=== PATIENT | female | born 1985 | race Caucasian/White ===

== ENCOUNTER 2018-05-28 18:48 | Emergency (ER) | payer BC ==
[~2018-05-28] VITALS: Ht 154.9 cm; Wt 45.5 kg
[2018-05-28 19:04] VITALS: Ht 154.9 cm; Wt 45.5 kg
[2018-05-28] MEDS ORDERED: TORADOL10 MG PO (19:05)
[2018-05-28] MEDS ORDERED: FLOMAX0.4 MG PO (19:06)
[2018-05-28 19:35] LABS: APPEARANCE HAZY (CLEAR); BILIRUBIN NEGATIVE (NEGATIVE); COLOR YELLOW (YELLOW); GLUCOSE NEGATIVE (NEGATIVE); KETONE NEGATIVE (NEGATIVE); NITRITE NEGATIVE (NEGATIVE); PROTEIN 1+ mg/dL (NEGATIVE); UROBILINOGEN NORMAL (NORMAL); WHITE CELLS - URINE 0-5 /hpf (0-5)
[2018-05-28 19:36] LABS: EPITHELIAL CELLS OCC /hpf (0-5); HCG URINE NEGATIVE (NEGATIVE); RED CELLS - URINE >50 /hpf (0-5)
[2018-05-28 19:42] LABS: BASOPHILS 0.1 % (0-2); EOSINOPHILS 4.8 % (0-7); HEMATOCRIT 36.4 % (36.0-48.0); HEMOGLOBIN 12.4 g/dL (12-16); IMMATURE GRANULOCYTES 0.1 % (0-5); LYMPHOCYTES 36.6 % (15-50); MCH 30.1 pg (26.0-34.0); MCHC 34.1 g/dL (31.0-37.0); MCV 88.3 fL (80.0-100.0); MEAN PLATELET VOLUME 9.5 fL (7.4-10.4); MONOCYTES 9.1 % (2-11); NEUTROPHILS 49.3 % (40-80); PLATELET COUNT 267 10x3/uL (130-400); RBC 4.12 10x6/uL (4.00-5.40); RDW 12.8 % (11.5-14.5); WBC 8.1 10x3/uL (4.8-10.8)
[2018-05-28 19:49] LABS: CALC OSMOLALITY 278 mosm/kg (275-300); CALCIUM 8.8 mg/dL (8.5-10.1); CARBON DIOXIDE 24.8 mmol/L (21.0-32.0); CHLORIDE - SERUM 105 mmol/L (98-107); CREATININE - SERUM 0.6 mg/dL (0.6-1.3); GLUCOSE 91 mg/dL (74-106); POTASSIUM - SERUM 4.1 mmol/L (3.5-5.1); SODIUM 140 mmol/L (136-145); UREA NITROGEN 12 mg/dL (7-18); eGFR NON AFRICAN AMERICAN > 90 mL/min (90-120)
[2018-05-28] MEDS ORDERED: NORCO 5/325 TAB1 TAB PO (20:21)
[2018-05-28 20:52] VITALS: BP 112/6
== END 2018-05-28 20:53 | disposition home or self-care (01) ==
LOC: D.ER 18:48
PROVIDERS: Emergency Medicine
DX: N20.1 Calculus of ureter (principal); R11.2 Nausea with vomiting, unspecified; F17.200 Nicotine dependence, unspecified, uncomplicated

== ENCOUNTER 2018-08-15 14:26 | Emergency (ER) | payer BC ==
[~2018-08-15] VITALS: Ht 154.9 cm; Wt 50.0 kg
[~2018-08-15 14:26] MED LIST: FLOMAX0.4 MG PO; NORCO 5/325 TAB1 TAB PO; TORADOL10 MG PO
[2018-08-15 14:36] VITALS: Ht 154.9 cm; Wt 50.0 kg
[2018-08-15 15:44] LABS: BASOPHILS 0.3 % (0-2); EOSINOPHILS 6.4 % (0-7); HEMATOCRIT 38.3 % (36.0-48.0); HEMOGLOBIN 12.9 g/dL (12-16); IMMATURE GRANULOCYTES 0.2 % (0-5); LYMPHOCYTES 40.5 % (15-50); MCH 29.9 pg (26.0-34.0); MCHC 33.7 g/dL (31.0-37.0); MCV 88.9 fL (80.0-100.0); MEAN PLATELET VOLUME 9.1 fL (7.4-10.4); MONOCYTES 7.9 % (2-11); NEUTROPHILS 44.7 % (40-80); PLATELET COUNT 303 10x3/uL (130-400); RBC 4.31 10x6/uL (4.00-5.40); RDW 13.1 % (11.5-14.5); WBC 6.6 10x3/uL (4.8-10.8)
[2018-08-15 15:46] LABS: APPEARANCE CLEAR (CLEAR); BILIRUBIN NEGATIVE (NEGATIVE); COLOR YELLOW (YELLOW); GLUCOSE NEGATIVE (NEGATIVE); KETONE NEGATIVE (NEGATIVE); NITRITE NEGATIVE (NEGATIVE); PROTEIN NEGATIVE (NEGATIVE); UROBILINOGEN NORMAL (NORMAL)
[2018-08-15 15:47] LABS: BACTERIA FEW /hpf (NONE SEEN); EPITHELIAL CELLS 0-5 /hpf (0-5); RED CELLS - URINE 0-5 /hpf (0-5); WHITE CELLS - URINE 0-5 /hpf (0-5)
[2018-08-15 16:01] LABS: ALBUMIN 3.5 g/dL (3.4-5.0); ALKALINE PHOSPHATASE 121 U/L (46-116); ALT (SGPT) 146 U/L (10-68); BILIRUBIN - TOTAL 0.24 mg/dL (0.2-1.3); CALC OSMOLALITY 284 mosm/kg (275-300); CALCIUM 8.7 mg/dL (8.5-10.1); CARBON DIOXIDE 27.6 mmol/L (21.0-32.0); CHLORIDE - SERUM 107 mmol/L (98-107); CREATININE - SERUM 0.6 mg/dL (0.6-1.3); GLUCOSE 79 mg/dL (74-106); POTASSIUM - SERUM 3.3 mmol/L (3.5-5.1); PROTEIN - SERUM 7.5 g/dL (6.4-8.2); SODIUM 144 mmol/L (136-145); UREA NITROGEN 9 mg/dL (7-18); eGFR NON AFRICAN AMERICAN > 90 mL/min (90-120)
[2018-08-15 16:36] LABS: HCG URINE NEGATIVE (NEGATIVE)
[2018-08-15] MEDS ORDERED: HYDROCODON-ACE1 EAC7 PO (19:45)
[2018-08-15] MEDS ORDERED: ZOFRAN4 MG PO (19:45)
[2018-08-15 20:26] VITALS: BP 128/75
== END 2018-08-15 20:28 | disposition home or self-care (01) ==
LOC: D.ER 14:26
PROVIDERS: Family Medicine
DX: N20.0 Calculus of kidney (principal); R11.2 Nausea with vomiting, unspecified

== ENCOUNTER 2018-08-23 13:44 | Emergency (ER) | payer BC ==
[~2018-08-23] VITALS: Ht 154.9 cm; Wt 50.0 kg
[~2018-08-23 13:44] MED LIST changes: +HYDROCODON-ACE1 EAC7 PO; +ZOFRAN4 MG PO
[2018-08-23 14:09] VITALS: BP 142/104; Ht 154.9 cm; Wt 50.0 kg
[2018-08-23 15:06] LABS: APPEARANCE CLEAR (CLEAR); BILIRUBIN NEGATIVE (NEGATIVE); COLOR YELLOW (YELLOW); EPITHELIAL CELLS 0-5 /hpf (0-5); GLUCOSE NEGATIVE (NEGATIVE); KETONE NEGATIVE (NEGATIVE); NITRITE NEGATIVE (NEGATIVE); PROTEIN NEGATIVE (NEGATIVE); RED CELLS - URINE 0-5 /hpf (0-5); SPECIFIC GRAVITY 1.015 (1.005-1.020); UROBILINOGEN NORMAL (NORMAL); WHITE CELLS - URINE 0-5 /hpf (0-5)
[2018-08-23 15:10] LABS: HEMATOCRIT 40.5 % (36.0-48.0); HEMOGLOBIN 13.8 g/dL (12-16); LYMPHOCYTES 28.6 % (15-50); MCH 30.4 pg (26.0-34.0); MCHC 34.1 g/dL (31.0-37.0); MCV 89.2 fL (80.0-100.0); MEAN PLATELET VOLUME 9.1 fL (7.4-10.4); NEUTROPHILS 66.4 % (40-80); RBC 4.54 10x6/uL (4.00-5.40); RDW 13.1 % (11.5-14.5); WBC 7.7 10x3/uL (4.8-10.8)
[2018-08-23 15:12] LABS: PLATELET COUNT 380 10x3/uL (130-400)
[2018-08-23 15:29] LABS: ALBUMIN 3.6 g/dL (3.4-5.0); ALKALINE PHOSPHATASE 103 U/L (46-116); ALT (SGPT) 38 U/L (10-68); BILIRUBIN - TOTAL 0.21 mg/dL (0.2-1.3); CALC OSMOLALITY 281 mosm/kg (275-300); CALCIUM 9.1 mg/dL (8.5-10.1); CHLORIDE - SERUM 108 mmol/L (98-107); CREATININE - SERUM 0.5 mg/dL (0.6-1.3); GLUCOSE 79 mg/dL (74-106); PROTEIN - SERUM 7.8 g/dL (6.4-8.2); SODIUM 143 mmol/L (136-145); UREA NITROGEN 8 mg/dL (7-18); eGFR NON AFRICAN AMERICAN > 90 mL/min (90-120)
[2018-08-23] MEDS ORDERED: ZOFRAN4 MG PO (17:08)
[2018-08-23] MEDS ORDERED: HYDROCODON-ACE1 EAC7 PO (17:08)
== END 2018-08-23 18:42 | disposition home or self-care (01) ==
LOC: D.ER 13:44
PROVIDERS: Family Medicine
DX: N23 Unspecified renal colic (principal); R11.0 Nausea; F17.200 Nicotine dependence, unspecified, uncomplicated

== ENCOUNTER 2018-09-25 18:33 | Emergency (ER) | payer BC ==
[~2018-09-25] VITALS: Ht 154.9 cm; Wt 50.9 kg
[2018-09-25 19:09] VITALS: Ht 154.9 cm; Wt 50.9 kg
[2018-09-25 20:30] LABS: APPEARANCE HAZY (CLEAR); COLOR YELLOW (YELLOW)
[2018-09-25 20:31] LABS: BILIRUBIN NEGATIVE (NEGATIVE); EPITHELIAL CELLS 0-5 /hpf (0-5); GLUCOSE NEGATIVE (NEGATIVE); KETONE NEGATIVE (NEGATIVE); NITRITE NEGATIVE (NEGATIVE); PROTEIN NEGATIVE (NEGATIVE); RED CELLS - URINE 25-50 /hpf (0-5); UROBILINOGEN NORMAL (NORMAL)
[2018-09-25 20:32] LABS: BACTERIA FEW /hpf (NONE SEEN)
[2018-09-25] MEDS ORDERED: HYDROCODON-ACE1 EAC2 PO (22:03)
[2018-09-25 22:17] VITALS: BP 132/84
== END 2018-09-25 22:17 | disposition home or self-care (01) ==
LOC: D.ER 18:33
PROVIDERS: Family Medicine
DX: N23 Unspecified renal colic (principal)

== ENCOUNTER 2018-11-04 19:45 | Emergency (ER) | payer BC ==
[~2018-11-04] VITALS: Ht 154.9 cm; Wt 54.4 kg
[~2018-11-04 19:45] MED LIST changes: +HYDROCODON-ACE1 EAC2 PO
[2018-11-04 19:48] VITALS: Ht 154.9 cm; Wt 54.4 kg
[2018-11-04 21:31] LABS: APPEARANCE HAZY (CLEAR); BACTERIA NONE SEEN /hpf (NONE SEEN); BILIRUBIN NEGATIVE (NEGATIVE); COLOR YELLOW (YELLOW); EPITHELIAL CELLS 0-5 /hpf (0-5); GLUCOSE NEGATIVE (NEGATIVE); KETONE NEGATIVE (NEGATIVE); NITRITE NEGATIVE (NEGATIVE); PROTEIN NEGATIVE (NEGATIVE); UROBILINOGEN NORMAL (NORMAL); WHITE CELLS - URINE RARE /hpf (0-5)
[2018-11-04 23:05] VITALS: BP 149/73
== END 2018-11-04 23:05 | disposition home or self-care (01) ==
LOC: D.ER 19:45
PROVIDERS: Emergency Medicine
DX: N23 Unspecified renal colic (principal)

== ENCOUNTER 2019-01-16 08:01 | Emergency (ER) | payer SELFPAY ==
[~2019-01-16] VITALS: Ht 154.9 cm; Wt 56.8 kg
[2019-01-16 08:04] VITALS: Ht 154.9 cm; Wt 56.8 kg
[2019-01-16 08:36] LABS: BASOPHILS 0.1 % (0-2); EOSINOPHILS 2.8 % (0-7); HEMATOCRIT 35.3 % (36.0-48.0); HEMOGLOBIN 11.9 g/dL (12-16); IMMATURE GRANULOCYTES 0.1 % (0-5); LYMPHOCYTES 24.6 % (15-50); MCH 29.8 pg (26.0-34.0); MCHC 33.7 g/dL (31.0-37.0); MCV 88.3 fL (80.0-100.0); MEAN PLATELET VOLUME 9.2 fL (7.4-10.4); MONOCYTES 8.2 % (2-11); NEUTROPHILS 64.2 % (40-80); PLATELET COUNT 323 10x3/uL (130-400); RDW 13.8 % (11.5-14.5); WBC 7.8 10x3/uL (4.8-10.8)
[2019-01-16 08:50] LABS: ALBUMIN 3.4 g/dL (3.4-5.0); ALKALINE PHOSPHATASE 92 U/L (46-116); ALT (SGPT) 20 U/L (10-68); BILIRUBIN - TOTAL 0.19 mg/dL (0.2-1.3); CALC OSMOLALITY 277 mosm/kg (275-300); CALCIUM 8.6 mg/dL (8.5-10.1); CARBON DIOXIDE 24.9 mmol/L (21.0-32.0); CHLORIDE - SERUM 108 mmol/L (98-107); CREATININE - SERUM 0.6 mg/dL (0.6-1.3); GLUCOSE 86 mg/dL (74-106); POTASSIUM - SERUM 3.9 mmol/L (3.5-5.1); PROTEIN - SERUM 6.8 g/dL (6.4-8.2); SODIUM 140 mmol/L (136-145); UREA NITROGEN 12 mg/dL (7-18); eGFR NON AFRICAN AMERICAN > 90 mL/min (90-120)
[2019-01-16 08:59] LABS: APPEARANCE CLEAR (CLEAR); BILIRUBIN NEGATIVE (NEGATIVE); COLOR YELLOW (YELLOW); GLUCOSE NEGATIVE (NEGATIVE); KETONE NEGATIVE (NEGATIVE); NITRITE NEGATIVE (NEGATIVE); PROTEIN NEGATIVE (NEGATIVE); SPECIFIC GRAVITY 1.025 (1.005-1.020); UROBILINOGEN NORMAL (NORMAL); WHITE CELLS - URINE OCC /hpf (0-5)
[2019-01-16 09:00] LABS: BACTERIA FEW /hpf (NONE SEEN); EPITHELIAL CELLS 0-5 /hpf (0-5); MUCUS >1+ /lpf (NONE SEEN); RED CELLS - URINE 0-5 /hpf (0-5)
[2019-01-16] MEDS ORDERED: HYDROCODON-ACE1 EA10 PO (10:21)
[2019-01-16] MEDS ORDERED: FLOMAX0.4 MG PO (10:21)
[2019-01-16 11:18] VITALS: BP 136/82
== END 2019-01-16 11:18 | disposition home or self-care (01) ==
LOC: D.ER 08:01
PROVIDERS: Emergency Medicine
DX: N20.1 Calculus of ureter (principal); N20.0 Calculus of kidney

== ENCOUNTER 2019-03-11 10:12 | Emergency (ER) | payer BC ==
[~2019-03-11] VITALS: Ht 154.9 cm; Wt 55.9 kg
[~2019-03-11 10:12] MED LIST changes: +HYDROCODON-ACE1 EA10 PO
[2019-03-11 10:24] VITALS: BP 130/100; Ht 154.9 cm; Wt 55.9 kg
[2019-03-11] MEDS ORDERED: TORADOL10 MG PO (10:27)
[2019-03-11 11:12] LABS: HCG URINE NEGATIVE (NEGATIVE)
[2019-03-11 11:29] LABS: BASOPHILS 0.1 % (0-2); EOSINOPHILS 1.3 % (0-7); HEMOGLOBIN 12.9 g/dL (12-16); IMMATURE GRANULOCYTES 0.1 % (0-5); LYMPHOCYTES 28.2 % (15-50); MCH 30.6 pg (26.0-34.0); MCHC 34.9 g/dL (31.0-37.0); MCV 87.7 fL (80.0-100.0); MEAN PLATELET VOLUME 9.3 fL (7.4-10.4); MONOCYTES 7.8 % (2-11); NEUTROPHILS 62.5 % (40-80); PLATELET COUNT 290 10x3/uL (130-400); RBC 4.22 10x6/uL (4.00-5.40); RDW 13.1 % (11.5-14.5)
[2019-03-11 11:36] LABS: ALKALINE PHOSPHATASE 83 U/L (46-116); ALT (SGPT) 18 U/L (10-68); BILIRUBIN - TOTAL 0.31 mg/dL (0.2-1.3); CALC OSMOLALITY 277 mosm/kg (275-300); CALCIUM 8.6 mg/dL (8.5-10.1); CARBON DIOXIDE 23.8 mmol/L (21.0-32.0); CHLORIDE - SERUM 106 mmol/L (98-107); CREATININE - SERUM 0.6 mg/dL (0.6-1.3); GLUCOSE 91 mg/dL (74-106); POTASSIUM - SERUM 3.9 mmol/L (3.5-5.1); PROTEIN - SERUM 7.5 g/dL (6.4-8.2); SODIUM 139 mmol/L (136-145); UREA NITROGEN 13 mg/dL (7-18); eGFR NON AFRICAN AMERICAN > 90 mL/min (90-120)
[2019-03-11 12:39] LABS: APPEARANCE HAZY (CLEAR); BACTERIA MODERATE /hpf (NONE SEEN); BILIRUBIN NEGATIVE (NEGATIVE); COLOR YELLOW (YELLOW); EPITHELIAL CELLS 0-5 /hpf (0-5); GLUCOSE NEGATIVE (NEGATIVE); KETONE NEGATIVE (NEGATIVE); MUCUS <1+ /lpf (NONE SEEN); NITRITE NEGATIVE (NEGATIVE); PROTEIN NEGATIVE (NEGATIVE); SPECIFIC GRAVITY 1.025 (1.005-1.020); UROBILINOGEN NORMAL (NORMAL); WHITE CELLS - URINE OCC /hpf (0-5)
== END 2019-03-11 12:25 | disposition left against medical advice (07) ==
LOC: D.ER 10:12
PROVIDERS: Emergency Medicine
DX: R10.9 Unspecified abdominal pain (principal); R31.9 Hematuria, unspecified; Z87.442 Personal history of urinary calculi; N23 Unspecified renal colic

== ENCOUNTER 2019-04-17 12:05 | Emergency (ER) | payer BC ==
[~2019-04-17] VITALS: Ht 154.9 cm; Wt 54.5 kg
[2019-04-17 13:07] VITALS: Ht 154.9 cm; Wt 54.5 kg
[2019-04-17 13:45] LABS: ALKALINE PHOSPHATASE 83 U/L (46-116); ALT (SGPT) 29 U/L (10-68); BILIRUBIN - TOTAL 0.27 mg/dL (0.2-1.3); CALC OSMOLALITY 284 mosm/kg (275-300); CARBON DIOXIDE 26.5 mmol/L (21.0-32.0); CHLORIDE - SERUM 109 mmol/L (98-107); CREATININE - SERUM 0.9 mg/dL (0.6-1.3); GLUCOSE 89 mg/dL (74-106); POTASSIUM - SERUM 3.9 mmol/L (3.5-5.1); PROTEIN - SERUM 7.7 g/dL (6.4-8.2); SODIUM 144 mmol/L (136-145); UREA NITROGEN 11 mg/dL (7-18); eGFR NON AFRICAN AMERICAN 75 mL/min (90-120)
[2019-04-17 14:00] LABS: APPEARANCE HAZY (CLEAR); BACTERIA FEW /hpf (NONE SEEN); BILIRUBIN NEGATIVE (NEGATIVE); COLOR YELLOW (YELLOW); EPITHELIAL CELLS OCC /hpf (0-5); GLUCOSE NEGATIVE (NEGATIVE); KETONE NEGATIVE (NEGATIVE); MUCUS <1+ /lpf (NONE SEEN); NITRITE NEGATIVE (NEGATIVE); PROTEIN NEGATIVE (NEGATIVE); SPECIFIC GRAVITY 1.005 (1.005-1.020); UROBILINOGEN NORMAL (NORMAL); WHITE CELLS - URINE OCC /hpf (0-5)
[2019-04-17 14:06] LABS: BASOPHILS 0.1 % (0-2); EOSINOPHILS 0.9 % (0-7); HEMATOCRIT 40.7 % (36.0-48.0); HEMOGLOBIN 13.7 g/dL (12-16); IMMATURE GRANULOCYTES 0.3 % (0-5); LYMPHOCYTES 25.4 % (15-50); MCH 30.9 pg (26.0-34.0); MCHC 33.7 g/dL (31.0-37.0); MCV 91.9 fL (80.0-100.0); MEAN PLATELET VOLUME 9.4 fL (7.4-10.4); MONOCYTES 6.6 % (2-11); NEUTROPHILS 66.7 % (40-80); PLATELET COUNT 335 10x3/uL (130-400); RBC 4.43 10x6/uL (4.00-5.40); RDW 12.5 % (11.5-14.5); WBC 7.4 10x3/uL (4.8-10.8)
[2019-04-17 14:23] LABS: RED CELLS - URINE NONE SEEN /hpf (0-5)
[2019-04-17 14:52] LABS: HCG URINE NEGATIVE (NEGATIVE)
[2019-04-17 15:56] VITALS: BP 113/61
[2019-04-17] MEDS ORDERED: ULTRAM50 MG PO (16:40)
== END 2019-04-17 16:50 | disposition home or self-care (01) ==
LOC: D.ER 12:05
PROVIDERS: Family Medicine
DX: R10.31 Right lower quadrant pain (principal); N20.0 Calculus of kidney

== ENCOUNTER 2019-05-19 13:36 | Emergency (ER) | payer BC ==
[~2019-05-19] VITALS: Ht 154.9 cm; Wt 54.5 kg
[~2019-05-19 13:36] MED LIST changes: +ULTRAM50 MG PO
[2019-05-19 13:51] VITALS: Ht 154.9 cm; Wt 54.5 kg
[2019-05-19 14:22] LABS: APPEARANCE CLEAR (CLEAR); BILIRUBIN NEGATIVE (NEGATIVE); COLOR STRAW (YELLOW); GLUCOSE NEGATIVE (NEGATIVE); KETONE NEGATIVE (NEGATIVE); NITRITE NEGATIVE (NEGATIVE); PROTEIN NEGATIVE (NEGATIVE); SPECIFIC GRAVITY 1.005 (1.005-1.020); UROBILINOGEN NORMAL (NORMAL)
[2019-05-19 14:23] LABS: BACTERIA MODERATE /hpf (NEGATIVE); CALCIUM OXALATE CRYSTALS 0-5 /hpf (NONE SEEN); EPITHELIAL CELLS 0-5 /hpf (0-5); RED CELLS - URINE 0-5 /hpf (0-5); WHITE CELLS - URINE 0-5 /hpf (NEGATIVE)
[2019-05-19 14:25] LABS: BASOPHILS 0.2 % (0-2); EOSINOPHILS 13.1 % (0-7); HEMATOCRIT 41.8 % (36.0-48.0); HEMOGLOBIN 13.9 g/dL (12-16); IMMATURE GRANULOCYTES 0.2 % (0-5); LYMPHOCYTES 25.5 % (15-50); MCH 30.8 pg (26.0-34.0); MCHC 33.3 g/dL (31.0-37.0); MCV 92.5 fL (80.0-100.0); MEAN PLATELET VOLUME 9.1 fL (7.4-10.4); MONOCYTES 6.3 % (2-11); NEUTROPHILS 54.7 % (40-80); PLATELET COUNT 370 10x3/uL (130-400); RBC 4.52 10x6/uL (4.00-5.40); RDW 12.5 % (11.5-14.5); WBC 9.6 10x3/uL (4.8-10.8)
[2019-05-19 14:27] LABS: HCG URINE NEGATIVE (NEGATIVE)
[2019-05-19 14:44] LABS: ALKALINE PHOSPHATASE 94 U/L (46-116); ALT (SGPT) 21 U/L (10-68); BILIRUBIN - TOTAL 0.31 mg/dL (0.2-1.3); CALC OSMOLALITY 282 mosm/kg (275-300); CALCIUM 8.9 mg/dL (8.5-10.1); CARBON DIOXIDE 27.2 mmol/L (21.0-32.0); CHLORIDE - SERUM 107 mmol/L (98-107); CREATININE - SERUM 0.7 mg/dL (0.6-1.3); GLUCOSE 83 mg/dL (74-106); POTASSIUM - SERUM 3.5 mmol/L (3.5-5.1); PROTEIN - SERUM 8.1 g/dL (6.4-8.2); SODIUM 143 mmol/L (136-145); UREA NITROGEN 9 mg/dL (7-18); eGFR NON AFRICAN AMERICAN > 90 mL/min (90-120)
[2019-05-19] MEDS ORDERED: HYDROCODON-ACE1 EAC7 PO (15:57)
[2019-05-19] MEDS ORDERED: CIPRO500 MG PO (15:57)
[2019-05-19 16:27] VITALS: BP 142/90
== END 2019-05-19 16:28 | disposition home or self-care (01) ==
LOC: D.ER 13:36
PROVIDERS: Emergency Medicine
DX: N23 Unspecified renal colic (principal); Q61.3 Polycystic kidney, unspecified; F17.210 Nicotine dependence, cigarettes, uncomplicated

== ENCOUNTER 2019-06-06 09:53 | Emergency (ER) | payer BC ==
[~2019-06-06] VITALS: Ht 154.9 cm; Wt 54.5 kg
[~2019-06-06 09:53] MED LIST changes: +CIPRO500 MG PO
[2019-06-06 10:04] VITALS: Ht 154.9 cm; Wt 54.5 kg
[2019-06-06 11:39] LABS: BASOPHILS 0.1 % (0-2); EOSINOPHILS 9.7 % (0-7); HEMATOCRIT 39.3 % (36.0-48.0); HEMOGLOBIN 13.1 g/dL (12-16); IMMATURE GRANULOCYTES 0.1 % (0-5); LYMPHOCYTES 33.9 % (15-50); MCH 30.5 pg (26.0-34.0); MCHC 33.3 g/dL (31.0-37.0); MCV 91.6 fL (80.0-100.0); MEAN PLATELET VOLUME 9.3 fL (7.4-10.4); MONOCYTES 5.6 % (2-11); NEUTROPHILS 50.6 % (40-80); PLATELET COUNT 330 10x3/uL (130-400); RBC 4.29 10x6/uL (4.00-5.40); RDW 12.8 % (11.5-14.5); WBC 7.2 10x3/uL (4.8-10.8)
[2019-06-06 11:40] LABS: HCG URINE NEGATIVE (NEGATIVE)
[2019-06-06 11:42] LABS: APPEARANCE CLEAR (CLEAR); BILIRUBIN NEGATIVE (NEGATIVE); COLOR STRAW (YELLOW); GLUCOSE NEGATIVE (NEGATIVE); KETONE NEGATIVE (NEGATIVE); NITRITE NEGATIVE (NEGATIVE); PROTEIN NEGATIVE (NEGATIVE); UROBILINOGEN NORMAL (NORMAL)
[2019-06-06 11:54] LABS: CALC OSMOLALITY 275 mosm/kg (275-300); CALCIUM 8.7 mg/dL (8.5-10.1); CARBON DIOXIDE 26.1 mmol/L (21.0-32.0); CHLORIDE - SERUM 107 mmol/L (98-107); CREATININE - SERUM 0.5 mg/dL (0.6-1.3); GLUCOSE 87 mg/dL (74-106); POTASSIUM - SERUM 4.2 mmol/L (3.5-5.1); SODIUM 140 mmol/L (136-145); UREA NITROGEN 8 mg/dL (7-18); eGFR NON AFRICAN AMERICAN > 90 mL/min (90-120)
[2019-06-06 12:00] LABS: ALBUMIN 3.7 g/dL (3.4-5.0); ALKALINE PHOSPHATASE 100 U/L (46-116); ALT (SGPT) 54 U/L (10-68); BILIRUBIN - TOTAL 0.28 mg/dL (0.2-1.3); PROTEIN - SERUM 7.5 g/dL (6.4-8.2)
[2019-06-06 14:43] VITALS: BP 123/78
== END 2019-06-06 14:44 | disposition home or self-care (01) ==
LOC: D.ER 09:53
PROVIDERS: Family Medicine
DX: R10.9 Unspecified abdominal pain (principal)

== ENCOUNTER 2019-06-12 11:22 | Emergency (ER) | payer BC ==
[~2019-06-12] VITALS: Ht 154.9 cm; Wt 54.5 kg
[2019-06-12 11:29] VITALS: Ht 154.9 cm; Wt 54.5 kg
[2019-06-12 11:55] LABS: BASOPHILS 0.2 % (0-2); EOSINOPHILS 8.3 % (0-7); HEMATOCRIT 38.3 % (36.0-48.0); HEMOGLOBIN 12.5 g/dL (12-16); IMMATURE GRANULOCYTES 0.2 % (0-5); LYMPHOCYTES 30.8 % (15-50); MCH 30.6 pg (26.0-34.0); MCHC 32.6 g/dL (31.0-37.0); MCV 93.9 fL (80.0-100.0); MEAN PLATELET VOLUME 8.9 fL (7.4-10.4); MONOCYTES 6.6 % (2-11); NEUTROPHILS 53.9 % (40-80); PLATELET COUNT 355 10x3/uL (130-400); RBC 4.08 10x6/uL (4.00-5.40); RDW 12.8 % (11.5-14.5); WBC 5.8 10x3/uL (4.8-10.8)
[2019-06-12 12:07] LABS: CALC OSMOLALITY 284 mosm/kg (275-300); CARBON DIOXIDE 27.3 mmol/L (21.0-32.0); CHLORIDE - SERUM 107 mmol/L (98-107); CREATININE - SERUM 0.6 mg/dL (0.6-1.3); GLUCOSE 85 mg/dL (74-106); POTASSIUM - SERUM 3.6 mmol/L (3.5-5.1); SODIUM 144 mmol/L (136-145); UREA NITROGEN 9 mg/dL (7-18); eGFR NON AFRICAN AMERICAN > 90 mL/min (90-120)
[2019-06-12 12:13] LABS: ALBUMIN 3.9 g/dL (3.4-5.0); ALKALINE PHOSPHATASE 100 U/L (46-116); ALT (SGPT) 39 U/L (10-68); BILIRUBIN - TOTAL 0.21 mg/dL (0.2-1.3); PROTEIN - SERUM 7.3 g/dL (6.4-8.2)
[2019-06-12 12:20] LABS: APPEARANCE CLEAR (CLEAR); BACTERIA FEW /hpf (NEGATIVE); BILIRUBIN NEGATIVE (NEGATIVE); COLOR YELLOW (YELLOW); EPITHELIAL CELLS OCC /hpf (0-5); GLUCOSE NEGATIVE (NEGATIVE); KETONE NEGATIVE (NEGATIVE); MUCUS <1+ /lpf (NONE SEEN); NITRITE NEGATIVE (NEGATIVE); PROTEIN NEGATIVE (NEGATIVE); RED CELLS - URINE OCC /hpf (0-5); SPECIFIC GRAVITY 1.005 (1.005-1.020); UROBILINOGEN NORMAL (NORMAL); WHITE CELLS - URINE RARE /hpf (NEGATIVE)
[2019-06-12 12:31] LABS: AMYLASE - SERUM 47 U/L (25-115); LIPASE 126 U/L (73-393)
[2019-06-12 13:20] LABS: HCG SERUM NEGATIVE (NEGATIVE)
[2019-06-12 13:31] VITALS: BP 125/74
== END 2019-06-12 13:32 | disposition home or self-care (01) ==
LOC: D.ER 11:22
PROVIDERS: Family Medicine
DX: N20.0 Calculus of kidney (principal); F17.210 Nicotine dependence, cigarettes, uncomplicated

== ENCOUNTER 2019-06-16 15:52 | Emergency (ER) | payer BC ==
[~2019-06-16] VITALS: Ht 154.9 cm; Wt 54.5 kg
[2019-06-16 15:59] VITALS: Ht 154.9 cm; Wt 54.5 kg
[2019-06-16 16:26] LABS: APPEARANCE CLEAR (CLEAR); BILIRUBIN NEGATIVE (NEGATIVE); COLOR YELLOW (YELLOW); GLUCOSE NEGATIVE (NEGATIVE); KETONE NEGATIVE (NEGATIVE); NITRITE NEGATIVE (NEGATIVE); PROTEIN NEGATIVE (NEGATIVE); SPECIFIC GRAVITY 1.025 (1.005-1.020); UROBILINOGEN NORMAL (NORMAL)
[2019-06-16 16:27] LABS: BACTERIA MODERATE /hpf (NEGATIVE); EPITHELIAL CELLS 0-5 /hpf (0-5); RED CELLS - URINE 0-5 /hpf (0-5)
[2019-06-16] MEDS ORDERED: SULFAMETHOXAZOL1 TA2 PO (16:39)
[2019-06-16] MEDS ORDERED: HYDROCODON-ACE1 EAC7 PO (16:39)
[2019-06-16 16:53] LABS: BASOPHILS 0.1 % (0-2); EOSINOPHILS 2.8 % (0-7); HEMATOCRIT 34.9 % (36.0-48.0); HEMOGLOBIN 11.5 g/dL (12-16); IMMATURE GRANULOCYTES 0.1 % (0-5); LYMPHOCYTES 26.4 % (15-50); MCH 30.6 pg (26.0-34.0); MCV 92.8 fL (80.0-100.0); MONOCYTES 8.9 % (2-11); NEUTROPHILS 61.7 % (40-80); PLATELET COUNT 334 10x3/uL (130-400); RBC 3.76 10x6/uL (4.00-5.40); RDW 12.9 % (11.5-14.5); WBC 8.1 10x3/uL (4.8-10.8)
[2019-06-16 17:01] LABS: CALC OSMOLALITY 285 mosm/kg (275-300); CALCIUM 8.6 mg/dL (8.5-10.1); CARBON DIOXIDE 26.7 mmol/L (21.0-32.0); CHLORIDE - SERUM 109 mmol/L (98-107); CREATININE - SERUM 0.6 mg/dL (0.6-1.3); GLUCOSE 95 mg/dL (74-106); POTASSIUM - SERUM 3.6 mmol/L (3.5-5.1); SODIUM 144 mmol/L (136-145); UREA NITROGEN 10 mg/dL (7-18); eGFR NON AFRICAN AMERICAN > 90 mL/min (90-120)
[2019-06-16 17:07] LABS: ALBUMIN 3.5 g/dL (3.4-5.0); ALKALINE PHOSPHATASE 80 U/L (46-116); ALT (SGPT) 26 U/L (10-68); BILIRUBIN - TOTAL 0.34 mg/dL (0.2-1.3); PROTEIN - SERUM 6.8 g/dL (6.4-8.2)
[2019-06-16 17:50] VITALS: BP 151/72
== END 2019-06-16 17:54 | disposition home or self-care (01) ==
LOC: D.ER 15:52
PROVIDERS: Emergency Medicine
DX: N20.1 Calculus of ureter (principal); F17.200 Nicotine dependence, unspecified, uncomplicated

== ENCOUNTER 2019-06-28 14:56 | Emergency (ER) | payer BC ==
[2019-06-16 15:59] VITALS: BMI 22.7
[~2019-06-28 14:56] MED LIST changes: +SULFAMETHOXAZOL1 TA2 PO
== END 2019-06-28 15:01 | disposition left against medical advice (07) ==
LOC: D.ER 14:56
DX: N20.0 Calculus of kidney (principal); Z53.21 Procedure and treatment not carried out due to patient leaving prior to being seen by health care provider

== ENCOUNTER 2019-07-02 11:53 | Emergency (ER) | payer BC ==
[~2019-07-02] VITALS: Ht 154.9 cm; Wt 54.5 kg
[2019-07-02 12:45] VITALS: Ht 154.9 cm; Wt 54.5 kg
[2019-07-02 13:50] LABS: CALC OSMOLALITY 276 mosm/kg (275-300); CALCIUM 8.7 mg/dL (8.5-10.1); CARBON DIOXIDE 25.4 mmol/L (21.0-32.0); CHLORIDE - SERUM 105 mmol/L (98-107); CREATININE - SERUM 0.6 mg/dL (0.6-1.3); GLUCOSE 93 mg/dL (74-106); SODIUM 139 mmol/L (136-145); UREA NITROGEN 9 mg/dL (7-18); eGFR NON AFRICAN AMERICAN > 90 mL/min (90-120)
[2019-07-02 13:54] LABS: BASOPHILS 0.1 % (0-2); EOSINOPHILS 1.8 % (0-7); HEMATOCRIT 39.1 % (36.0-48.0); HEMOGLOBIN 12.9 g/dL (12-16); IMMATURE GRANULOCYTES 0.3 % (0-5); LYMPHOCYTES 33.9 % (15-50); MCH 30.7 pg (26.0-34.0); MCV 93.1 fL (80.0-100.0); MEAN PLATELET VOLUME 9.1 fL (7.4-10.4); MONOCYTES 7.4 % (2-11); NEUTROPHILS 56.5 % (40-80); PLATELET COUNT 342 10x3/uL (130-400); RDW 13.3 % (11.5-14.5); WBC 6.8 10x3/uL (4.8-10.8)
[2019-07-02 13:56] LABS: ALKALINE PHOSPHATASE 81 U/L (46-116); ALT (SGPT) 25 U/L (10-68); BILIRUBIN - TOTAL 0.25 mg/dL (0.2-1.3); PROTEIN - SERUM 7.8 g/dL (6.4-8.2)
[2019-07-02 14:08] LABS: APPEARANCE CLEAR (CLEAR); BILIRUBIN NEGATIVE (NEGATIVE); COLOR YELLOW (YELLOW); GLUCOSE NEGATIVE (NEGATIVE); KETONE NEGATIVE (NEGATIVE); NITRITE NEGATIVE (NEGATIVE); PROTEIN NEGATIVE (NEGATIVE); SPECIFIC GRAVITY 1.015 (1.005-1.020); UROBILINOGEN NORMAL (NORMAL)
[2019-07-02] MEDS ORDERED: ZOFRAN ODT4 MG/UDTAB PO (17:50)
[2019-07-02] MEDS ORDERED: TORADOL10 MG PO (17:50)
[2019-07-02 18:44] VITALS: BP 140/82
== END 2019-07-02 18:00 | disposition home or self-care (01) ==
LOC: D.ER 11:53
PROVIDERS: Family Medicine
DX: N23 Unspecified renal colic (principal)

== ENCOUNTER 2019-07-21 15:11 | Emergency (ER) | payer BC ==
[~2019-07-21] VITALS: Ht 154.9 cm; Wt 54.5 kg
[~2019-07-21 15:11] MED LIST changes: +ZOFRAN ODT4 MG/UDTAB PO
[2019-07-21 15:21] VITALS: Ht 154.9 cm; Wt 54.5 kg
[2019-07-21 15:48] LABS: BASOPHILS 0.1 % (0-2); EOSINOPHILS 1.9 % (0-7); HEMATOCRIT 37.8 % (36.0-48.0); HEMOGLOBIN 12.6 g/dL (12-16); IMMATURE GRANULOCYTES 0.1 % (0-5); LYMPHOCYTES 13.8 % (15-50); MCHC 33.3 g/dL (31.0-37.0); MCV 93.1 fL (80.0-100.0); MEAN PLATELET VOLUME 9.2 fL (7.4-10.4); NEUTROPHILS 79.1 % (40-80); PLATELET COUNT 322 10x3/uL (130-400); RBC 4.06 10x6/uL (4.00-5.40); RDW 13.3 % (11.5-14.5); WBC 10.8 10x3/uL (4.8-10.8)
[2019-07-21 16:06] LABS: CALC OSMOLALITY 276 mosm/kg (275-300); CALCIUM 8.8 mg/dL (8.5-10.1); CARBON DIOXIDE 27.9 mmol/L (21.0-32.0); CHLORIDE - SERUM 106 mmol/L (98-107); CREATININE - SERUM 0.5 mg/dL (0.6-1.3); GLUCOSE 106 mg/dL (74-106); POTASSIUM - SERUM 3.7 mmol/L (3.5-5.1); SODIUM 140 mmol/L (136-145); UREA NITROGEN 8 mg/dL (7-18); eGFR NON AFRICAN AMERICAN > 90 mL/min (90-120)
[2019-07-21 16:12] LABS: ALBUMIN 3.4 g/dL (3.4-5.0); ALKALINE PHOSPHATASE 77 U/L (46-116); ALT (SGPT) 32 U/L (10-68); BILIRUBIN - TOTAL 0.24 mg/dL (0.2-1.3); PROTEIN - SERUM 6.8 g/dL (6.4-8.2)
[2019-07-21 16:26] LABS: APPEARANCE CLEAR (CLEAR); BILIRUBIN NEGATIVE (NEGATIVE); COLOR STRAW (YELLOW); GLUCOSE NEGATIVE (NEGATIVE); KETONE NEGATIVE (NEGATIVE); NITRITE NEGATIVE (NEGATIVE); PROTEIN TRACE mg/dL (NEGATIVE); SPECIFIC GRAVITY 1.005 (1.005-1.020); UROBILINOGEN NORMAL (NORMAL)
[2019-07-21 16:28] LABS: BACTERIA FEW /hpf (NEGATIVE); EPITHELIAL CELLS 0-5 /hpf (0-5); RED CELLS - URINE 0-5 /hpf (0-5); WHITE CELLS - URINE 0-5 /hpf (NEGATIVE)
[2019-07-21] MEDS ORDERED: HYDROCODON-ACE1 EAC7 PO (16:45)
[2019-07-21 17:19] VITALS: BP 140/78
== END 2019-07-21 17:20 | disposition home or self-care (01) ==
LOC: D.ER 15:11
PROVIDERS: Emergency Medicine
DX: N20.0 Calculus of kidney (principal); Z87.442 Personal history of urinary calculi

== ENCOUNTER 2019-07-25 14:27 | Emergency (ER) | payer BC ==
[~2019-07-25] VITALS: Ht 154.9 cm; Wt 54.5 kg
[2019-07-25 14:31] VITALS: Ht 154.9 cm; Wt 54.5 kg
[2019-07-25 14:53] LABS: BASOPHILS 0.1 % (0-2); EOSINOPHILS 3.5 % (0-7); HEMATOCRIT 36.7 % (36.0-48.0); HEMOGLOBIN 12.2 g/dL (12-16); IMMATURE GRANULOCYTES 0.1 % (0-5); LYMPHOCYTES 34.2 % (15-50); MCH 31.1 pg (26.0-34.0); MCHC 33.2 g/dL (31.0-37.0); MCV 93.6 fL (80.0-100.0); MEAN PLATELET VOLUME 9.3 fL (7.4-10.4); MONOCYTES 7.7 % (2-11); NEUTROPHILS 54.4 % (40-80); PLATELET COUNT 322 10x3/uL (130-400); RBC 3.92 10x6/uL (4.00-5.40); RDW 13.3 % (11.5-14.5); WBC 9.1 10x3/uL (4.8-10.8)
[2019-07-25 14:56] LABS: APPEARANCE CLEAR (CLEAR); BILIRUBIN NEGATIVE (NEGATIVE); COLOR YELLOW (YELLOW); GLUCOSE NEGATIVE (NEGATIVE); KETONE NEGATIVE (NEGATIVE); NITRITE NEGATIVE (NEGATIVE); PROTEIN TRACE mg/dL (NEGATIVE); UROBILINOGEN NORMAL (NORMAL)
[2019-07-25 14:58] LABS: BACTERIA FEW /hpf (NEGATIVE); EPITHELIAL CELLS 0-5 /hpf (0-5); RED CELLS - URINE 25-50 /hpf (0-5); WHITE CELLS - URINE 0-5 /hpf (NEGATIVE)
[2019-07-25 14:59] LABS: HCG URINE NEGATIVE (NEGATIVE)
[2019-07-25 15:00] LABS: CALC OSMOLALITY 276 mosm/kg (275-300); CALCIUM 8.9 mg/dL (8.5-10.1); CARBON DIOXIDE 27.7 mmol/L (21.0-32.0); CHLORIDE - SERUM 105 mmol/L (98-107); CREATININE - SERUM 0.6 mg/dL (0.6-1.3); GLUCOSE 104 mg/dL (74-106); POTASSIUM - SERUM 3.6 mmol/L (3.5-5.1); SODIUM 139 mmol/L (136-145); UREA NITROGEN 11 mg/dL (7-18); eGFR NON AFRICAN AMERICAN > 90 mL/min (90-120)
[2019-07-25 15:09] LABS: ALBUMIN 3.5 g/dL (3.4-5.0); ALKALINE PHOSPHATASE 84 U/L (46-116); ALT (SGPT) 25 U/L (10-68); AMYLASE - SERUM 41 U/L (25-115); BILIRUBIN - TOTAL 0.22 mg/dL (0.2-1.3); LIPASE 108 U/L (73-393); PROTEIN - SERUM 7.1 g/dL (6.4-8.2); TROPONIN-I < 0.017 ng/mL (0.000-0.060)
[2019-07-25 17:59] VITALS: BP 149/77
== END 2019-07-25 18:07 | disposition home or self-care (01) ==
LOC: D.ER 14:27
PROVIDERS: Family Medicine
DX: R10.31 Right lower quadrant pain (principal); R11.2 Nausea with vomiting, unspecified; Z87.442 Personal history of urinary calculi

== ENCOUNTER 2019-08-25 10:19 | Emergency (ER) | payer BC ==
[2019-08-25 10:25] VITALS: Ht 154.9 cm
[2019-08-25 10:44] LABS: BASOPHILS 0 % (0-2); EOSINOPHILS 0.8 % (0-7); HEMATOCRIT 41.5 % (36.0-48.0); HEMOGLOBIN 14.1 g/dL (12-16); IMMATURE GRANULOCYTES 0.3 % (0-5); LYMPHOCYTES 24.7 % (15-50); MCH 31.1 pg (26.0-34.0); MCV 91.6 fL (80.0-100.0); MEAN PLATELET VOLUME 9.6 fL (7.4-10.4); MONOCYTES 6.4 % (2-11); NEUTROPHILS 67.8 % (40-80); PLATELET COUNT 301 10x3/uL (130-400); RBC 4.53 10x6/uL (4.00-5.40); RDW 12.8 % (11.5-14.5); WBC 7.7 10x3/uL (4.8-10.8)
[2019-08-25 10:49] LABS: APPEARANCE CLEAR (CLEAR); BILIRUBIN NEGATIVE (NEGATIVE); COLOR YELLOW (YELLOW); GLUCOSE NEGATIVE (NEGATIVE); KETONE NEGATIVE (NEGATIVE); NITRITE NEGATIVE (NEGATIVE); PROTEIN NEGATIVE (NEGATIVE); UROBILINOGEN NORMAL (NORMAL)
[2019-08-25 11:08] LABS: ALBUMIN 3.6 g/dL (3.4-5.0); ALKALINE PHOSPHATASE 85 U/L (46-116); ALT (SGPT) 25 U/L (10-68); BILIRUBIN - TOTAL 0.25 mg/dL (0.2-1.3); CALC OSMOLALITY 285 mosm/kg (275-300); CALCIUM 8.4 mg/dL (8.5-10.1); CARBON DIOXIDE 26.5 mmol/L (21.0-32.0); CHLORIDE - SERUM 109 mmol/L (98-107); CKMB 0.1 U/L (0.0-3.6); CREATINE KINASE 40 UL (21-215); CREATININE - SERUM 0.7 mg/dL (0.6-1.3); GLUCOSE 91 mg/dL (74-106); MAGNESIUM - SERUM 1.8 mg/dL (1.8-2.4); PROTEIN - SERUM 7.6 g/dL (6.4-8.2); SODIUM 144 mmol/L (136-145); UREA NITROGEN 9 mg/dL (7-18); eGFR NON AFRICAN AMERICAN > 90 mL/min (90-120)
[2019-08-25 11:09] LABS: C-REACTIVE PROTEIN 0.2 mg/dL (0.0-0.9); POTASSIUM - SERUM 2.9 mmol/L (3.5-5.1); TROPONIN-I < 0.017 ng/mL (0.000-0.060)
[2019-08-25] MEDS ORDERED: ZOFRAN4 MG PO (13:24)
[2019-08-25] MEDS ORDERED: KLOR-CON 1010 MEQ PO (13:24)
[2019-08-25 13:39] VITALS: BP 132/78
== END 2019-08-25 13:40 | disposition home or self-care (01) ==
LOC: D.ER 10:19
PROVIDERS: Emergency Medicine
DX: N23 Unspecified renal colic (principal); E87.6 Hypokalemia; R11.2 Nausea with vomiting, unspecified; Z87.442 Personal history of urinary calculi

== ENCOUNTER 2020-04-12 07:24 | Emergency (ER) | payer BC ==
[~2020-04-12] VITALS: Ht 154.9 cm; Wt 52.2 kg
[~2020-04-12 07:24] MED LIST changes: +KLOR-CON 1010 MEQ PO
[2020-04-12 07:27] VITALS: Ht 154.9 cm; Wt 52.2 kg
[2020-04-12] MEDS ORDERED: CYCLOBENZAPRINE10 MG PO (08:00)
[2020-04-12] MEDS ORDERED: IBUPROFEN800 MG PO (08:00)
[2020-04-12] MEDS ORDERED: ACETAMINOPHEN500 M1 PO (08:00)
[2020-04-12 08:09] LABS: BILIRUBIN NEGATIVE (NEGATIVE); KETONE NEGATIVE (NEGATIVE); NITRITE NEGATIVE (NEGATIVE); UROBILINOGEN NORMAL (NORMAL)
[2020-04-12 08:10] LABS: WHITE CELLS - URINE 0-5 /hpf (0-5)
[2020-04-12 08:11] LABS: BACTERIA FEW /hpf (NONE SEEN); EPITHELIAL CELLS 0-5 /hpf (0-5)
[2020-04-12 08:11] LABS: HCG URINE NEGATIVE (NEGATIVE)
[2020-04-12 12:57] VITALS: BP 122/60
== END 2020-04-26 07:31 | disposition home or self-care (01) ==
LOC: D.ER 07:24
PROVIDERS: Family Medicine
DX: M54.5 Low back pain (principal); S33.5XXA Sprain of ligaments of lumbar spine, initial encounter; M79.18 Myalgia, other site; T14.8XXA Other injury of unspecified body region, initial encounter; X50.0XXA Overexertion from strenuous movement or load, initial encounter; Y93.9 Activity, unspecified; Y92.9 Unspecified place or not applicable

== ENCOUNTER 2020-11-03 12:21 | Emergency (ER) | payer BC ==
[2020-04-12 07:27] VITALS: Ht 154.9 cm; Wt 54.5 kg
[~2020-11-03] VITALS: Ht 154.9 cm; Wt 54.5 kg
[~2020-11-03 12:21] MED LIST changes: +ACETAMINOPHEN500 M1 PO; +CYCLOBENZAPRINE10 MG PO; +IBUPROFEN800 MG PO
[2020-11-03 12:28] VITALS: BP 150/81
[2020-11-03 13:01] LABS: BASOPHILS 0.2 % (0-2); HEMATOCRIT 39.1 % (36.0-48.0); HEMOGLOBIN 13.1 g/dL (12-16); IMMATURE GRANULOCYTES 0.2 % (0-5); LYMPHOCYTE ABS# 1.86 10x3/uL (1.18-3.74); LYMPHOCYTES 33.9 % (15-50); MCH 29.5 pg (26.0-34.0); MCHC 33.5 g/dL (31.0-37.0); MCV 88.1 fL (80.0-100.0); MEAN PLATELET VOLUME 9.3 fL (7.4-10.4); MONOCYTES 11.3 % (2-11); NEUTROPHIL ABS# 2.77 10x3/uL (1.56-6.13); NEUTROPHILS 50.4 % (40-80); PLATELET COUNT 347 10x3/uL (130-400); RBC 4.44 10x6/uL (4.00-5.40); RDW 12.6 % (11.5-14.5); WBC 5.5 10x3/uL (4.8-10.8)
[2020-11-03 13:08] LABS: CALC OSMOLALITY 272 mosm/kg (275-300); CARBON DIOXIDE 24.2 mmol/L (21.0-32.0); CHLORIDE - SERUM 104 mmol/L (98-107); CREATININE - SERUM 0.7 mg/dL (0.6-1.3); GLUCOSE 90 mg/dL (74-106); POTASSIUM - SERUM 3.9 mmol/L (3.5-5.1); SODIUM 137 mmol/L (136-145); UREA NITROGEN 11 mg/dL (7-18); eGFR NON AFRICAN AMERICAN > 90 mL/min (90-120)
[2020-11-03 13:11] LABS: BILIRUBIN NEGATIVE (NEGATIVE); KETONE NEGATIVE (NEGATIVE); NITRITE NEGATIVE (NEGATIVE); UROBILINOGEN NORMAL mg/dL (< 2)
[2020-11-03 13:12] LABS: BACTERIA FEW HPF (NONE SEEN); WHITE CELLS - URINE 0-5 HPF (0-4)
[2020-11-03 13:13] LABS: SQUAMOUS EPITHELIAL 0-5 HPF (0-4)
[2020-11-03 13:21] LABS: ALBUMIN 4.1 g/dL (3.4-5.0); ALKALINE PHOSPHATASE 80 U/L (30-120); ALT (SGPT) 42 U/L (10-68); BILIRUBIN - TOTAL 0.32 mg/dL (0.2-1.3); PROTEIN - SERUM 8.1 g/dL (6.4-8.2)
[2020-11-03 13:42] LABS: HCG URINE NEGATIVE (NEGATIVE)
[2020-11-03] MEDS ORDERED: HYDROCODON-ACE1 EAC7 PO (15:29)
== END 2020-11-03 15:43 | disposition home or self-care (01) ==
LOC: D.ER 12:21
PROVIDERS: Family Medicine
DX: N20.1 Calculus of ureter (principal); R10.9 Unspecified abdominal pain

== ENCOUNTER 2020-11-19 06:25 | Day surgery (SDC) | payer BC ==
[2020-11-16 14:07] LABS: BASOPHILS 0.2 % (0-2); EOSINOPHILS 3.6 % (0-7); HEMOGLOBIN 12.3 g/dL (12-16); IMMATURE GRANULOCYTES 0.2 % (0-5); LYMPHOCYTE ABS# 2.21 10x3/uL (1.18-3.74); LYMPHOCYTES 34.7 % (15-50); MCH 28.3 pg (26.0-34.0); MCHC 31.5 g/dL (31.0-37.0); MCV 89.9 fL (80.0-100.0); MEAN PLATELET VOLUME 10.1 fL (7.4-10.4); MONOCYTES 6.6 % (2-11); NEUTROPHIL ABS# 3.49 10x3/uL (1.56-6.13); NEUTROPHILS 54.7 % (40-80); PLATELET COUNT 364 10x3/uL (130-400); RBC 4.34 10x6/uL (4.00-5.40); RDW 12.4 % (11.5-14.5); WBC 6.4 10x3/uL (4.8-10.8)
[~2020-11-19] VITALS: Ht 154.9 cm; Wt 57.3 kg
[2020-11-19 07:22] VITALS: BP 119/75; Ht 154.9 cm; Wt 57.3 kg
[2020-11-19 07:30] LABS: HCG URINE NEGATIVE (NEGATIVE)
--- NOTE | 2020-11-19 16:24 | NUR ---
1615 IV REMOVED AND INSTRUCTIONS GIVEN. PT VOIDED AND NAUSEA PASSING. SMALL AMT OF BLOOD TO VAG
--- NOTE | 2020-12-08 12:45 | OP ---
PATIENT NAME: MADELEINE SETHI MEDICAL RECORD: [id number] :83 LOCATION:D.OPS ADMISSION DATE: SURGEON: DENI LUCIA DO DATE OF OPERATION: 11/19/2020 DATE OF SERVICE: 11/19/2020 PREOPERATIVE DIAGNOSES: Pelvic pain, displaced clip, desire for sterilization. POSTOPERATIVE DIAGNOSES: Pelvic pain, displaced clip, desire for sterilization. PRIMARY SURGEON: Deni Lucia DO ANESTHESIA: General endotracheal tube. PROCEDURES: Diagnostic laparoscopy with bilateral tubal ligation. FINDINGS: Uterus sounded to 8 cm. On laparoscopy, densely adhered uterus to the anterior abdominal wall. Clips noted in place on the patient's left fallopian tube, and left tube appears to have some separation as well on this side. On the right side of pelvis adhesions noted and aishwarya noted on the right side from appendectomy site. No clips were noted in the cul-de-sac or on exploration of abdomen. Liver grossly normal. SPECIMENS: None. ESTIMATED BLOOD LOSS: Less than 20 mL. IV FLUIDS: Per anesthesia. URINE OUTPUT: Clear yellow urine. COMPLICATIONS: None. Risks of surgery including bleeding, pain, infection, damage to surrounding structures such as the bladder and the bowel, ureters and neurovascular structures as well as risk of VTE, scar tissue, and pain discussed with the patient. The patient expressed understanding and desires to proceed with surgical management for pelvic pain and displaced clips, concerned due to posibility of with displaced clip and desires no further childbearing. Consent signed in the office and preoperatively. DESCRIPTION OF PROCEDURE: The patient was then taken to the operating room where general anesthesia was administered and found to be adequate. She was prepped and draped in normal sterile fashion in dorsal lithotomy position with Paul stirrups. Davison placed. Speculum was placed in the vagina. Anterio rlip of cervix grasped with tenaculum. Uterus sounded to 8 cm. Cervix was dilated and HUMI retractor placed. Attention then turned to the abdomen. Marcaine injected into all port sites prior to placement of the ports. Attention was initially turned to the subumbilical area. Incision was made with scalpel to accommodate 5-mm port and port placed with direct entry technique. No trauma noted after port placement and pneumoperitoneum created. The patient placed in Trendelenburg. Second 5mm port OPERATIVE REPORT [id number] SETHI,MADELEINE R placed in left lower quadrant under sirect visualization without issue. Findings of adhered uterus and clip placement on left noted. At this point, Camilo introduced and right fallopian tube cauterized about 2 cm away from the cornua and cut in the middle of the coagulated portion for sterilization Some filmy adhesion snoted on right adnexal and taken down bluntly without issue. Aishwarya were seen on the right side at the site of prior appendectomy. Pelvis then irrigated. The patient was placed in reverse Trendelenburg, irrigated again, and then returned to [facility] to see if the clips could be dislodged from any point in the abdomen. No clips were noted again in the cul-de-sac and pictures taken to document such. This was done one more time to see again if clips dislodge and again no clips noted in cul-de-sac or on surace exploration of the bowel or liver. Pelvic anatomy reexamined and good hemostasis noted at site of fulguration. Pneumoperitoneum was released and trocars were removed. Incisions closed with 3-0 Monocryl in a subcuticular fashion and Dermabond. The patient was awakened and taken to recovery room in stable condition. All sponge, needle and instrument counts were correct x2. TRANSINT:[id number] Voice Confirmation ID: [id number] DOCUMENT ID: [id number] DENI LUCIA DO at 1245 CC: [id number] DICTATION DATE: 12/05/20 1242 VOICE PATHOLOGIST: 12/05/20 1320 [facility] 11/19/20 [id number] [place] [address]
== END 2020-11-19 16:35 | disposition home or self-care (01) ==
LOC: D.OPS 06:25
PROVIDERS: ATTEND Obstetrics & Gynecology
DX: R10.2 Pelvic and perineal pain (principal); Z30.2 Encounter for sterilization

== ENCOUNTER 2020-11-26 14:07 | Emergency (ER) | payer BC ==
[~2020-11-26] VITALS: Ht 154.9 cm; Wt 56.8 kg
[2020-11-26 14:17] VITALS: BP 126/64; Ht 154.9 cm; Wt 56.8 kg
[2020-11-26 14:50] LABS: BASOPHILS 0.2 % (0-2); HEMOGLOBIN 12.4 g/dL (12-16); IMMATURE GRANULOCYTES 0.5 % (0-5); LYMPHOCYTE ABS# 1.81 10x3/uL (1.18-3.74); LYMPHOCYTES 28.2 % (15-50); MCH 29.1 pg (26.0-34.0); MCHC 33.5 g/dL (31.0-37.0); MCV 86.9 fL (80.0-100.0); MEAN PLATELET VOLUME 9.8 fL (7.4-10.4); NEUTROPHILS 59.1 % (40-80); RBC 4.26 10x6/uL (4.00-5.40); RDW 12.7 % (11.5-14.5); WBC 6.4 10x3/uL (4.8-10.8)
[2020-11-26 14:52] LABS: PLATELET COUNT 272 10x3/uL (130-400)
[2020-11-26 15:01] LABS: CALC OSMOLALITY 276 mosm/kg (275-300); CALCIUM 8.9 mg/dL (8.5-10.1); CARBON DIOXIDE 22.7 mmol/L (21.0-32.0); CHLORIDE - SERUM 105 mmol/L (98-107); CREATININE - SERUM 0.7 mg/dL (0.6-1.3); GLUCOSE 96 mg/dL (74-106); POTASSIUM - SERUM 3.8 mmol/L (3.5-5.1); SODIUM 138 mmol/L (136-145); UREA NITROGEN 15 mg/dL (7-18); eGFR NON AFRICAN AMERICAN > 90 mL/min (90-120)
[2020-11-26 15:06] LABS: ALBUMIN 3.6 g/dL (3.4-5.0); ALKALINE PHOSPHATASE 110 U/L (30-120); ALT (SGPT) 85 U/L (10-68); BILIRUBIN - TOTAL 0.17 mg/dL (0.2-1.3); PROTEIN - SERUM 7.8 g/dL (6.4-8.2)
[2020-11-26 15:36] LABS: AMYLASE - SERUM 52 U/L (25-115); LIPASE 163 U/L (73-393)
[2020-11-26 15:49] LABS: BILIRUBIN NEGATIVE (NEGATIVE); KETONE NEGATIVE (NEGATIVE); NITRITE NEGATIVE (NEGATIVE); UROBILINOGEN NORMAL mg/dL (< 2)
[2020-11-26 15:50] LABS: BACTERIA FEW HPF (NONE SEEN); WHITE CELLS - URINE 0-5 HPF (0-4)
[2020-11-26 17:03] LABS: HCG URINE NEGATIVE (NEGATIVE)
[2020-11-26] MEDS ORDERED: HYDROCODON-ACE1 EAC7 PO (17:13)
== END 2020-11-26 17:54 | disposition home or self-care (01) ==
LOC: D.ER 14:07
PROVIDERS: Family Medicine
DX: G89.18 Other acute postprocedural pain (principal); Z98.890 Other specified postprocedural states

== ENCOUNTER 2020-12-17 12:53 | Emergency (ER) | payer BC ==
[~2020-12-17] VITALS: Ht 154.9 cm; Wt 56.8 kg
[2020-12-17 13:05] VITALS: BP 127/106; Ht 154.9 cm; Wt 56.8 kg
[2020-12-17] MEDS ORDERED: HYDROCODON-ACE1 EAC7 PO (17:13)
[2020-12-17] MEDS ORDERED: PROVERA10 MG PO (17:13)
[2020-12-17 17:23] LABS: BASOPHILS 0 % (0-2); EOSINOPHILS 2.2 % (0-7); HEMATOCRIT 36.4 % (36.0-48.0); HEMOGLOBIN 11.8 g/dL (12-16); IMMATURE GRANULOCYTES 0.1 % (0-5); LYMPHOCYTE ABS# 2.61 10x3/uL (1.18-3.74); MCHC 32.4 g/dL (31.0-37.0); MCV 86.5 fL (80.0-100.0); MEAN PLATELET VOLUME 9.4 fL (7.4-10.4); MONOCYTES 8.1 % (2-11); NEUTROPHIL ABS# 3.39 10x3/uL (1.56-6.13); NEUTROPHILS 50.6 % (40-80); RBC 4.21 10x6/uL (4.00-5.40); RDW 13.2 % (11.5-14.5); WBC 6.7 10x3/uL (4.8-10.8)
[2020-12-17 17:24] LABS: PLATELET COUNT 336 10x3/uL (130-400)
[2020-12-17 17:43] LABS: CALC OSMOLALITY 282 mosm/kg (275-300); CALCIUM 9.2 mg/dL (8.5-10.1); CARBON DIOXIDE 26.8 mmol/L (21.0-32.0); CHLORIDE - SERUM 108 mmol/L (98-107); CREATININE - SERUM 0.6 mg/dL (0.6-1.3); GLUCOSE 93 mg/dL (74-106); POTASSIUM - SERUM 3.6 mmol/L (3.5-5.1); SODIUM 143 mmol/L (136-145); UREA NITROGEN 8 mg/dL (7-18); eGFR NON AFRICAN AMERICAN > 90 mL/min (90-120)
[2020-12-17 17:49] LABS: ALBUMIN 3.7 g/dL (3.4-5.0); ALKALINE PHOSPHATASE 95 U/L (30-120); ALT (SGPT) 42 U/L (10-68); BILIRUBIN - TOTAL 0.23 mg/dL (0.2-1.3); PROTEIN - SERUM 7.5 g/dL (6.4-8.2)
== END 2020-12-17 19:20 | disposition home or self-care (01) ==
LOC: D.ER 12:53
PROVIDERS: Emergency Medicine
DX: N93.9 Abnormal uterine and vaginal bleeding, unspecified (principal); T85.628A Displacement of other specified internal prosthetic devices, implants and grafts, initial encounter; R10.9 Unspecified abdominal pain

== ENCOUNTER 2020-12-31 09:40 | Day surgery (SDC) | payer BC ==
[2020-12-29 12:19] LABS: BASOPHILS 0.3 % (0-2); EOSINOPHILS 3.4 % (0-7); HEMOGLOBIN 11.6 g/dL (12-16); LYMPHOCYTES 25.2 % (15-50); MCH 27.9 pg (26.0-34.0); MCHC 33.3 g/dL (31.0-37.0); MCV 83.8 fL (80.0-100.0); MEAN PLATELET VOLUME 7.6 fL (7.4-10.4); MONOCYTES 5.5 % (2-11); NEUTROPHILS 65.6 % (40-80); PLATELET COUNT 330 10x3/uL (130-400); RBC 4.18 10x6/uL (4.00-5.40); RDW 13.9 % (11.5-14.5); WBC 5.7 10x3/uL (4.8-10.8)
[2020-12-29 12:24] LABS: CALC OSMOLALITY 283 mosm/kg (275-300); CALCIUM 8.8 mg/dL (8.5-10.1); CARBON DIOXIDE 27.1 mmol/L (21.0-32.0); CHLORIDE - SERUM 108 mmol/L (98-107); CREATININE - SERUM 0.7 mg/dL (0.6-1.3); GLUCOSE 105 mg/dL (74-106); POTASSIUM - SERUM 4.6 mmol/L (3.5-5.1); SODIUM 142 mmol/L (136-145); UREA NITROGEN 15 mg/dL (7-18); eGFR NON AFRICAN AMERICAN > 90 mL/min (90-120)
[~2020-12-31] VITALS: Ht 154.9 cm; Wt 57.2 kg
--- NOTE | ~2020-12-31 | OP ---
PATIENT NAME: MADELEINE SETHI MEDICAL RECORD: [id number] :83 LOCATION:D.OPS ADMISSION DATE: SURGEON: DENI LUCIA DO DATE OF OPERATION: 12/31/2020 PREOPERATIVE DIAGNOSES: Pelvic pain, retained Filshie clips, suspected umbilical hernia. POSTOPERATIVE DIAGNOSES: Pelvic pain, retained Filshie clips, suspected umbilical hernia. PRIMARY SURGEON: Deni Lucia DO WET END OPERATOR: Dr. Graves ANESTHESIA: GETA. PROCEDURES: Diagnostic laparoscopy, bilateral removal of Filshie clips, lysis of adhesions. FINDINGS: Uterus adhered to anterior abdominal wall, Filshie clips in cul-de-sac, Filshie clip on the left fallopian tube side. Adhesions on anterior abdominal wall by umbilicus. Adhesions on left wall to omentum. SPECIMENS: Filshie clips. EBL: 13 cc. IV FLUIDS: Per anesthesia. URINE OUTPUT: 400 cc clear yellow urine. INFECTION PROPHYLAXIS: 1 gram meropenem. COMPLICATIONS: None. DESCRIPTION OF PROCEDURE: The patient seen in preoperative area by Dr. Graves. Consents have been signed. The patient agreed and consent signed. The patient was taken to the operating room where general anesthesia was administered and found to be adequate. She was prepped and draped in normal sterile fashion in the dorsal lithotomy position. Veress needle used at Linares's point, placed by Dr. Graves and pneumoperitoneum created via gas through Veress needle. Abdomen insufflated. Then subumbilical incision made and 10-mm port placed. Trocars were placed in Linares's point after extending incision and then 4 and 5 mm ports placed in the left lower quadrant and right lower quadrant under direct visualization without issue. Examination by umbilicus demonstrated large adhesion towards anterior abdominal wall taken down with Enseal with good hemostasis. Attention then turned to the pelvis, bowel flipped back and Filshie clips noted in posterior cul-de-sac, grasped and removed without incident. Adhesions taken down in the left pelvic sidewall of omentum and bowel with good hemostasis. Some small adhesions noted on ovary, taken down from left ovary with good hemostasis. Per patient, due to pain oscillating on sides, suspicion for titanium allergy or allergy to clip considered and clip removed from left side. On this side, the tube has already been from possible prior placement of clip until there was about 1 [address] already [address]. Clip OPERATIVE REPORT [id number] MADELEINE SETHI removed without incident and cauterized with Enseal. Hemostasis was adequate. Pelvis irrigated and suctioned. Anatomy, gross abdominal review of organs looked overall appropriate with good hemostasis. The umbilicus was investigated and no particular hernia noted. Beto-Hilario was used to close the 10-mm port at the umbilicus with good hemostasis under direct visualization. The ports were then removed and closed in a subcuticular fashion. The patient was then awakened and taken to recovery room in stable condition. TRANSINT:[id number] Voice Confirmation ID: [id number] DOCUMENT ID: [id number] DENI LUCIA DO CC: [id number] DICTATION DATE: 12/31/20 1533 INSIDE TECHNICAL SALES REPRESENTATIVE: 12/31/202138 [facility] 12/31/20 [facility] [address] [place] [address]
[~2020-12-31 09:40] MED LIST changes: +PROVERA10 MG PO
[2020-12-31 10:55] VITALS: BP 124/82; Ht 154.9 cm; Wt 57.2 kg
--- NOTE | 2020-12-31 17:29 | NUR ---
1700 IV REMOVED TO RIGHT WRIST. PRESSURE HELD. INSTRUCTIONS GIVEN. 1730 MEDICATED FOR PAIN
--- NOTE | 2020-12-31 18:43 | NUR ---
1800 PAIN EASING SOME AND DRESSING REINFORCED WITH A BANDAID SMALL BLOOD NOTED ON EDGE OF UMBILICAL DRESSING. IV D/C TO LEFT HAND. PT VOIDED AND ABLE TO GET DRESSED.
== END 2020-12-31 18:25 | disposition home or self-care (01) ==
LOC: D.OPS 09:40 → EDSTATUS 12:00 → D.SDCHOLD 12:00 → D.OPS 18:25
PROVIDERS: ATTEND Surgery
DX: R10.2 Pelvic and perineal pain (principal); Z87.821 Personal history of retained foreign body fully removed; F17.200 Nicotine dependence, unspecified, uncomplicated; K42.9 Umbilical hernia without obstruction or gangrene

== ENCOUNTER → 2021-01-04 12:30 | Outpatient (CLI) | payer BC ==
[2020-12-31 10:55] VITALS: BMI 23.8
== END | disposition home or self-care (01) ==
LOC: D.CT 12:30
PROVIDERS: ATTEND Nurse Practitioner
DX: R10.9 Unspecified abdominal pain (principal)

== ENCOUNTER 2021-01-09 14:55 | Emergency (ER) | payer BC ==
[~2021-01-09] VITALS: Ht 154.9 cm; Wt 57.7 kg
[2021-01-09 15:18] VITALS: Ht 154.9 cm; Wt 57.7 kg
[2021-01-09 16:14] LABS: BASOPHILS 0.5 % (0-2); EOSINOPHILS 4.5 % (0-7); HEMATOCRIT 36.3 % (36.0-48.0); HEMOGLOBIN 11.8 g/dL (12-16); MCH 27.2 pg (26.0-34.0); MCHC 32.6 g/dL (31.0-37.0); MCV 83.5 fL (80.0-100.0); MEAN PLATELET VOLUME 7.4 fL (7.4-10.4); MONOCYTES 6.7 % (2-11); NEUTROPHILS 61.3 % (40-80); PLATELET COUNT 354 10x3/uL (130-400); RBC 4.35 10x6/uL (4.00-5.40); WBC 8.6 10x3/uL (4.8-10.8)
[2021-01-09 16:22] LABS: CALC OSMOLALITY 284 mosm/kg (275-300); CALCIUM 8.8 mg/dL (8.5-10.1); CARBON DIOXIDE 29.7 mmol/L (21.0-32.0); CHLORIDE - SERUM 108 mmol/L (98-107); CREATININE - SERUM 0.7 mg/dL (0.6-1.3); GLUCOSE 115 mg/dL (74-106); SODIUM 143 mmol/L (136-145); UREA NITROGEN 10 mg/dL (7-18); eGFR NON AFRICAN AMERICAN > 90 mL/min (90-120)
[2021-01-09 16:23] LABS: HCG SERUM NEGATIVE (NEGATIVE)
[2021-01-09 16:28] LABS: ALBUMIN 3.6 g/dL (3.4-5.0); ALKALINE PHOSPHATASE 75 U/L (30-120); ALT (SGPT) 22 U/L (10-68); BILIRUBIN - TOTAL 0.29 mg/dL (0.2-1.3); PROTEIN - SERUM 7.2 g/dL (6.4-8.2)
[2021-01-09] MEDS ORDERED: VIBRAMYCIN 100100 MG PO (17:39)
[2021-01-09] MEDS ORDERED: ACETAMINOPHEN500 M1 PO (17:40)
[2021-01-09] MEDS ORDERED: CYCLOBENZAPRINE10 MG PO (17:40)
[2021-01-09] MEDS ORDERED: IBUPROFEN800 MG PO (17:40)
== END 2021-01-09 17:53 | disposition home or self-care (01) ==
LOC: D.ER 14:55
PROVIDERS: Family Medicine
DX: G89.18 Other acute postprocedural pain (principal); R10.33 Periumbilical pain

== ENCOUNTER 2021-01-13 12:20 | Inpatient (IN) | payer BC ==
[~2021-01-13] VITALS: Ht 154.9 cm; Wt 57.3 kg
[~2021-01-13 12:20] MED LIST changes: +VIBRAMYCIN 100100 MG PO
[2021-01-13 13:20] VITALS: BP 131/91; BMI 23.8
[2021-01-13 13:56] VITALS: Ht 154.9 cm; Wt 57.3 kg
[2021-01-13 14:53] LABS: EOSINOPHILS 1.8 % (0-7); HEMATOCRIT 37.7 % (36.0-48.0); HEMOGLOBIN 12.3 g/dL (12-16); MCH 27.4 pg (26.0-34.0); MCHC 32.7 g/dL (31.0-37.0); MCV 83.8 fL (80.0-100.0); MEAN PLATELET VOLUME 7.7 fL (7.4-10.4); MONOCYTES 5.2 % (2-11); PLATELET COUNT 357 10x3/uL (130-400); RDW 14.7 % (11.5-14.5); WBC 9.1 10x3/uL (4.8-10.8)
[2021-01-13 15:06] LABS: ALKALINE PHOSPHATASE 80 U/L (30-120); ALT (SGPT) 18 U/L (10-68); AMYLASE - SERUM 50 U/L (25-115); CALC OSMOLALITY 278 mosm/kg (275-300); CALCIUM 8.8 mg/dL (8.5-10.1); CARBON DIOXIDE 29.5 mmol/L (21.0-32.0); CHLORIDE - SERUM 104 mmol/L (98-107); CREATININE - SERUM 0.7 mg/dL (0.6-1.3); GLUCOSE 91 mg/dL (74-106); LIPASE 86 U/L (73-393); POTASSIUM - SERUM 3.8 mmol/L (3.5-5.1); PROTEIN - SERUM 7.9 g/dL (6.4-8.2); SODIUM 139 mmol/L (136-145); UREA NITROGEN 14 mg/dL (7-18); eGFR NON AFRICAN AMERICAN > 90 mL/min (90-120)
[2021-01-13 16:14] LABS: ERYTHROCYTE SEDIMENTATION RATE 18 mm/hr (0-20)
[2021-01-13 16:19] VITALS: BP 115/51; BP 125/76
--- NOTE | 2021-01-13 19:45 | NUR ---
RECEIVED BEDSIDE REPORT. PT LAYING IN BED A&O X4. PIV TO RIGHT AC PATENT AND INFUSING, NO REDNESS OR SWELLING. SCAB TO MID ABD, DISTENDED. PT ABLE TO AMBULATE AD ADEN. EDUCATED PT ON CL AND NEEDS, VERBALIZED UNDERSTANDING. BED LOW, CL IN REACH.
[2021-01-13 19:50] LABS: BILIRUBIN NEGATIVE (NEGATIVE); KETONE NEGATIVE (NEGATIVE); NITRITE NEGATIVE (NEGATIVE); SQUAMOUS EPITHELIAL 0-5 HPF (0-4); UROBILINOGEN NORMAL mg/dL (< 2); WHITE CELLS - URINE NONE SEEN HPF (0-4)
[2021-01-13 20:00] VITALS: BP 111/63
[2021-01-13 22:16] LABS: SARS-CoV-2 ANTIGEN NEGATIVE- SARS-COV-2 (NEGATIVE)
[2021-01-14 04:00] VITALS: BP 107/84
[2021-01-14] MEDS ORDERED: HYDROCODONE-AC1 EAC2 PO (09:21)
[2021-01-14] MEDS ORDERED: LEVOFLOXACIN500 MG PO (09:23)
[2021-01-14 09:52] VITALS: BP 109/52
[2021-01-14 12:36] VITALS: BP 109/52
--- NOTE | 2021-01-14 12:52 | NUR ---
ABDOMEN SOFT WITH BOWEL SOUNDS NOTED. NO ERRYTHEMA NOTED TO ABDOMEN W/O DRAINAGE. IV DISCONTINUED AND VERBALIZED UNDERSTANDING OF DISCHARGE INSTRUCTIONS. STABLE AT TIME OF DISCHARGE.
== END 2021-01-14 12:53 | disposition home or self-care (01) | DRG 864 ==
LOC: D.MS 12:20
PROVIDERS: ADMIT Surgery; ATTEND Surgery
DX: R50.82 Postprocedural fever (principal); K59.00 Constipation, unspecified; N20.0 Calculus of kidney; G89.18 Other acute postprocedural pain

== ENCOUNTER → 2021-01-13 19:00 | Outpatient (CLI) | payer BC ==
[2021-01-13 13:56] VITALS: BMI 24.0
[~2021-01-13 19:00] MED LIST changes: +HYDROCODONE-AC1 EAC2 PO; +LEVOFLOXACIN500 MG PO
== END | disposition home or self-care (01) ==
LOC: D.LABREF 19:00
PROVIDERS: ATTEND Nurse Practitioner
DX: Z11.52 Encounter for screening for COVID-19 (principal)